=== PATIENT | female | born 1950 | race Caucasian/White ===

== ENCOUNTER → 2019-02-10 11:26 | Outpatient (CLI) | payer MEDICARE, SELFPAY ==
--- NOTE | 2019-02-10 | DI.MG.S_ITS ---
BILATERAL DIGITAL SCREENING MAMMOGRAM 3D/2D WITH CAD: 02/10/2019 CLINICAL: Routine screening. Comparison is made to exams dated: 12/23/2017 mammogram - [facility], 12/24/2016 mammogram, and 11/23/2015 mammogram - [facility]. There are scattered fibroglandular elements in both breasts. Current study was also evaluated with a Computer Aided Detection (CAD) system. No significant masses, calcifications, or other findings are seen in either breast. There has been no significant interval change. IMPRESSION: NEGATIVE There is no mammographic evidence of malignancy. A 1 year screening mammogram is recommended. This exam was interpreted at Station ID: [id number]. NOTE: For mammograms, a report in lay terms will be sent to the patient. Approximately 15% of breast malignancies will not be visualized mammographically. In the management of a palpable breast mass, a negative mammogram must not discourage biopsy of a clinically suspicious lesion. Electronically Signed By: Tereso polk/myriam:02/11/2019 09:26:18 copy to: FRANCISCA RAMON letter sent: Normal Exam ACR BI-RADS Category 1: Negative [id number]
== END ==
PROVIDERS: PCP Internal Medicine
DX: Z12.31 Encounter for screening mammogram for malignant neoplasm of breast (principal)
CPT/HCPCS: 77063; 77067

== ENCOUNTER → 2021-11-12 14:14 | Outpatient (CLI) | payer MEDICARE, SELFPAY ==
--- NOTE | 2021-11-12 14:17 | DI.RAD.S_ITS ---
PROCEDURE: XR LUMBAR SPINE MIN 4V INDICATIONS: BACK PAIN TECHNIQUE: 5 views of the lumbar spine were acquired, including bilateral oblique views. COMPARISON: [facility], MR, MR LUMBAR SPINE WO CON, 10/05/2015, 13:34. FINDINGS: Bones: 5 nonrib-bearing vertebrae are present. Maintained bony alignment. No vertebral body compression fractures. No suspicious bony lesions. Facet arthrosis at L5-S1. Soft tissues: Overlying bowel gas pattern is normal. No suspicious soft tissue calcifications. Oblique images: No pars defects. IMPRESSION: Facet arthrosis at L5-S1. Dictated by: Asif Brian M.D. on 11/12/2021 at 15:29 Approved by: Asif Brian M.D. on 11/12/2021 at 15:30
== END ==
PROVIDERS: PCP Internal Medicine; Referring Provider Physical Medicine & Rehabilitation; Visit Provider Physical Medicine & Rehabilitation
DX: M47.817 Spondylosis without myelopathy or radiculopathy, lumbosacral region (principal); M47.816 Spondylosis without myelopathy or radiculopathy, lumbar region; M54.9 Dorsalgia, unspecified
CPT/HCPCS: 72110; 99214

== ENCOUNTER → 2021-12-24 09:45 | Outpatient (CLI) | payer MEDICARE, SELFPAY ==
[2021-12-24 11:48] LABS: COVID19 -Nasal RAPID Negative (Negative)
== END ==
PROVIDERS: PCP Internal Medicine; Visit Provider Physical Medicine & Rehabilitation
DX: Z20.822 Contact with and (suspected) exposure to COVID-19 (principal)
CPT/HCPCS: 87635; C9803

== ENCOUNTER 2021-12-25 09:50 | Outpatient (CLI) | payer MEDICARE, SELFPAY ==
[2021-12-25] VITALS (10 sets, daily range): BP systolic 136–162; BP diastolic 67–89; PULSE 60–79; RESP 12–18; TEMP 36.2; O2SAT 95–100
--- NOTE | 2021-12-25 09:52 | DI.RAD.S_ITS ---
PROCEDURE: PAIN L/S FACET INJ/BLK 1ST MARILIA COMPARISON: [facility], CR, XR LUMBAR SPINE MIN 4V, 11/12/2021, 14:07. INDICATIONS: SPONDYLOSIS FINDINGS: Fluoroscopic spot filming was performed to verify placement of spinal needles on both sides at the L4-L5 and L5-S1 levels, as labeled on the films. Appropriate location of the needle tips was confirmed by injection of iodinated contrast. IMPRESSION: Intraprocedural examination demonstrating appropriate positions of the needles. Dictated by: Giovanny Figueroa M.D. on 12/25/2021 at 11:57 Approved by: Giovanny Figueroa M.D. on 12/25/2021 at 11:57
[2021-12-25] MEDS: LIDOCAINE 1% 20 ML 10 ML INJ (12:25)
[2021-12-25] MEDS: MIDAZOLAM 2 MG/2 ML VIAL 4 MG IV (12:28)
[2021-12-25] MEDS: BUPIVACAINE 0.5% (PF) VIAL 5 ML INJ (12:28)
[2021-12-25] MEDS: IOPAMIDOL 15 ML VIAL 3 ML INJ (12:29)
[2021-12-25] MEDS: BETAMETHASONE 30 MG/5 ML MDV 12 MG INJ (12:29)
--- NOTE | 2021-12-25 12:37 | P.PCN_ITS ---
Date/Time/Diagnoses Date of procedure: 12/25/21 Time of procedure: 12:37 Pre-procedure diagnosis: 1. FACET ARTHROPATHY 2. AXIAL LBP 3. MULTILEVEL DDD Post-procedure diagnosis: same Procedure Notes Procedure: 1. FLUOROSCOPICALLY GUIDED CONTRAST CONTROLLED FACET JOINT INJECTIONS BILATERAL L4/5, L5/S1 Indications: Yanet is referred by Dr. Daniels for treatment of Axial LBP Physician: Philip Catalan Total Fluoroscopy time (seconds): 13 Total sedation minutes: 14 Complications: none Procedure in detail & Post-procedure care: FINDINGS Multilevel Facet Arthropathy with Clinically significant axial LBP DESCRIPTION OF PROCEDURE Fluoroscopically guided, contrast-controlled bilateral L4/5, L5/S1 facet joint injections. Following review of allergy and review of potential side effects and complications, including, but not necessarily limited to, infection, allergic reaction, local tissue breakdown, stroke, temporary or permanent nerve injury, paralysis, and possible , the patient indicated that the patient understood and agreed to proceed. An informed consent document was signed by the patient, witnessed by a nurse, and placed in the patient's chart. Additionally, other treatment options including medications, modalities, and physical therapy were reviewed with the patient. After review of previous anaesthesic history and IV conscious sedation the patie nt was deemed safe to proceed with today?s procedure with IV conscious sedation as ASA class II designation. Safety time-out was performed to confirm patient ID, procedure to be performed and site of procedure. IV sedation was accomplished with a combination of 4mg of Versed was administered by the RN after DO order, titrated to patient comfort during the course of the procedure while the patient remained responsive to all verbal commands In the prone position, following sterile prep and drape of the lumbar region, the posterior aspect of the L4/5, L5/S1 facet joints were identified fluorosco pically. The skin was anesthetized via a 25-gauge 1.5inch needle with 1% lidocaine solution into the corresponding facet joints. At this point, a 22- gauge 3.5-inch spinal needle was atraumatically introduced and advanced under fluoroscopic guidance into the corresponding facet joints. Following negative aspiration, injections of approximately 0.2cc of Isovue 200 confirmed interarticular placement without vascular uptake. The identical procedure was then performed at the L4/5, L5/S1 facet joints on the left. Radiological data, including multiple fluoroscopic views of the lumbosacral spin e, reveal a spinal needle at the L4/5, L5/S1 facet joints bilaterally. Subsequent views show flow of contrast material both superiorly and inferiorly within the joint space without vascular or intrathecal uptake. At this point, a total of 0.5cc including a mixture of 0.25cc Marcaine and 0.25cc betamethasone was injected without complication into each of the corresponding facet joints. The patient tolerated the procedure well without signs or symptoms of complications prior to transfer to the recovery area continued monitoring without incident. The patient was then transferred to the recovery area where they were observed for an appropriate period of time after the injection. The patient reported a VAS score of 7 prior to the procedure and a post- procedure VAS of 0. POST OP INSTRUCTIONS The patient was provided a Pain Log to continue to record their response to the target-specific procedure prior to follow-up visit with their referring physician. Additionally, specific post-injection care instructions and a contact number to our office were provided if concerns arise regarding possible complications associated with the procedure are suspected.
== END 2021-12-25 13:05 | disposition home or self-care (01) ==
LOC: RAD 09:52
PROVIDERS: PCP Internal Medicine; Referring Provider Physical Medicine & Rehabilitation; Visit Provider Physical Medicine & Rehabilitation
DX: M47.816 Spondylosis without myelopathy or radiculopathy, lumbar region (principal); M47.817 Spondylosis without myelopathy or radiculopathy, lumbosacral region; M51.36 Other intervertebral disc degeneration, lumbar region; M51.37 Other intervertebral disc degeneration, lumbosacral region
CPT/HCPCS: 64493; 64494; 99152; J0702; J2250

== ENCOUNTER 2022-04-16 13:26 | Outpatient (CLI) | payer MEDICARE, SELFPAY ==
[2022-04-16] VITALS (9 sets, daily range): BP systolic 142–187; BP diastolic 76–94; PULSE 65–86; RESP 12–18; TEMP 36.3; O2SAT 94–100
--- NOTE | 2022-04-16 13:28 | DI.RAD.S_ITS ---
PROCEDURE: PAIN L/S FACET INJ/BLK 1ST MARILIA COMPARISON: [facility], , PAIN L/S FACET INJ/BLK 1ST MARILIA, 12/25/2021, 12:24. INDICATIONS: SPONDYLOSIS FINDINGS: Fluoroscopic spot filming was performed to verify placement of spinal needles on both sides at the L4, L5, and S1 levels, as labeled on the films. Appropriate location of the needle tips was confirmed by injection of iodinated contrast. IMPRESSION: Intraprocedural examination demonstrating appropriate positions of the needles. Dictated by: Giovanny Figueroa M.D. on 04/16/2022 at 14:44 Approved by: Giovanny Figueroa M.D. on 04/16/2022 at 14:44
[2022-04-16] MEDS: IOPAMIDOL 15 ML VIAL 3 ML INJ (14:56)
[2022-04-16] MEDS: BUPIVACAINE 0.5% (PF) VIAL 5 ML INJ (14:56)
[2022-04-16] MEDS: LIDOCAINE 1% 20 ML 5 ML INJ (14:57)
[2022-04-16] MEDS: MIDAZOLAM 2 MG/2 ML VIAL 4 MG IV (15:01)
--- NOTE | 2022-04-16 15:11 | PM.PROC.IR.1 ---
Date/Time/Diagnoses Date of procedure: 04/16/22 Time of procedure: 15:11 Pre-procedure diagnosis: 1. FACET ARTHROPATHY Post-procedure diagnosis: same Procedure Notes Procedure: 1. BILATERAL- L4, L5 and S1 DIAGNOSTIC MB BLOCKS with LA Anesthetic Indications: Yanet is referred by Dr. Danielsfor treatment of Bilateral Axial LBP. Physician: Philip Catalan Total Fluoroscopy time (seconds): 9 Total sedation minutes: 13 Complications: none Procedure in detail & Post-procedure care: DESCRIPTION OF PROCEDURE Fluoroscopically guided, contrast-controlled bilateral L4, L5 and S1 medial branch blocks with 0.5cc of 0.5% Marcaine. Following review of allergy and review of potential side effects and complications, including, but not necessarily limited to, infection, allergic reaction, local tissue breakdown, nerve injury, paralysis, stroke and possible , the patient indicated that the patient understood and agreed to proceed. An informed consent document was signed by the patient, witnessed by a nurse, and placed in the patient's chart. After review of previous anaesthesic history and IV conscious sedation the patient was deemed safe to proceed with today's procedure with IV conscious sedation as ASA class II designation. Safety time-out was performed to confirm patient ID, procedure to be performed and site of procedure. IV sedation was accomplished with a combination of 4mg of Versed was administered by the RN after DO order, titrated to patient comfort during the course of the procedure while the patient remained responsive to all verbal commands In the prone position, following sterile prep and drape of the lumbar region, the right L4, L5 and S1 anatomical location of the medial branch of the dorsal ramus was identified fluoroscopically. Subsequently an anesthetic skin wheal using 1% lidocaine solution was initiated at each of the anatomical spots. Subsequently then a 22-gauge 3.5-inch spinal needle was atraumatically introduced and advanced under fluoroscopic guidance at each of the corresponding sites at the right L4, L5 and S1 MB. After negative aspiration, 0.2cc of Isovue 200 was injected, confirming placement without vascular or intrathecal uptake. Subsequently then 0.5cc of 0.5% Marcaine solution was injected at each of the corresponding sites at the right L4, L5 and S1 medial branch locations. The identical procedure was replicated on the left. The patient tolerated the procedure well without signs or symptoms of complications prior to transfer to the recovery area continued monitoring without incident. Post-procedure, the patient was monitored initiating provocative activities to measure the amount of relief from block of the facetogenic pain. The patient reported a VAS of 7 prior to the procedure and a post-procedure VAS of 1. It has been a pleasure to assist in the diagnostic and therapeutic care of your patient. POST OP INSTRUCTIONS The patient was provided with a Pain Log to complete over the next several hours and subsequent days prior to the patient's follow up with the ordering physician. If the patient has ice cream dispenser relief to the solution applied, then they may be a candidate for medial branch rhizotomy. The patient is aware, was provided, once again, with a Pain Log and will follow up with the referring physician for review and clinical correlation
== END 2022-04-16 15:33 | disposition home or self-care (01) ==
LOC: RAD 13:28
PROVIDERS: PCP Internal Medicine; Referring Provider Physical Medicine & Rehabilitation; Visit Provider Physical Medicine & Rehabilitation
DX: M47.816 Spondylosis without myelopathy or radiculopathy, lumbar region (principal); M47.817 Spondylosis without myelopathy or radiculopathy, lumbosacral region
CPT/HCPCS: 64493; 64494; 99152; J2250